=== PATIENT | female | born 1960 | race Hispanic/Latino ===

== ENCOUNTER 2016-10-28 00:14 | Observation (INO) | payer OTHER, MEDICARE ==
[~2016-10-28 00:14] MED LIST: AMARYL 2 MG2 MG PO; ATORVASTATIN CA10 MG PO; AUGMENTIN 875-1 EACH PO; BELSOMRA15 MG PO; CYMBALTA60 M1 PO; GLYBURIDE2.5 MG PO; HYDROXYZINE HCL25 MG PO; LYRICA150 M1 PO; METFORMIN ER500 MG PO; MUPIROCIN22 GM TOP; OXYCODONE-ACET1 EAC1 PO; PROTONIX40 M3 PO; SYNTHROID75 MCG PO; TRADJENTA5 M1 PO; XIGDUO PO
--- NOTE | 2016-10-28 00:21 | NUR ---
PER PT CP ON AND OFF X 9 MONTHS SUPPOSED TO SEE REVIEW RN 4 MONTHS AGO BUT HE CURRENTLY LOOKING FOR ANOTHER. LUISANA CP X 1 HR WHILE AT REST EMOTIONAL REPORTS FEELS LIKE IT IS PULSATING ALSO WITH BACK PAIN AND ABD PAIN FOR A LONG TIME NO KNOWN INJURY.
--- NOTE | 2016-10-28 00:28 | ED CARDIAC/CP/PALPITATIONS ---
See Addendum History of Present Illness General Chief Complaint: Chest Pain Stated Complaint: CHEST PAIN LEFT ARM PAIN Source: patient, old records Exam Limitations: no limitations Vital Signs & Intake/Output Vital Signs & Intake/Output Vital Signs Date Time Temp Pulse Resp B/P Pulse O2 O2 Flow FiO2 Ox Delivery Rate 10/28 1025 70 20 121/70 99 Room Air 10/28 0727 97.1 69 129/79 98 10/28 0635 96.8 76 18 111/76 98 Room Air 10/28 0200 97.6 68 18 147/85 99 Room Air 10/28 0100 61 120/64 10/28 0046 164/78 10/28 0040 97.3 64 22 178/104 98 Room Air Allergies Coded Allergies: ciprofloxacin (From CIPRO) (UNKNOWN 12/28/15) codeine (UNKNOWN 12/28/15) Reconcile Medications DULOXETINE HCL (Cymbalta) 60 MG ECC 2 CAP PO DAILY MENTAL HEALTH (Reported) Levothyroxine Sodium 0.075 MG TAB 0.075 MG PO DAILY AC THYROID (Reported) Linagliptin (Tradjenta) 5 MG TAB 1 TAB PO DAILY DIABETES (Reported) Metformin Hydrochloride (Metformin ER) [address] 1 TAB PO BID DB OXYCODONE HCL/ACETAMINOPHEN (Oxycodone-Acetaminophen 10-325) 1 TAB TAB 1 TAB PO BID PAIN (Reported) Pantoprazole Sodium (Protonix) 40 MG TAB 40 MG PO DAILY ACID REFLUX (Reported ) Pregabalin (Lyrica) 150 MG CAP 1 CAP PO BID PAIN (Reported) Trazodone HCl 50 MG TABLET 1 TAB PO QPM SLEEP (Reported) Triage Note: PER PT CP ON AND OFF X 9 MONTHS SUPPOSED TO SEE HEMODIALYSIS TECHNICIAN 4 MONTHS AGO BUT HE CURRENTLY LOOKING FOR ANOTHER. TONIGHT CP X 1 HR WHILE AT REST EMOTIONAL REPORTS FEELS LIKE IT IS PULSATING ALSO WITH BACK PAIN AND ABD PAIN FOR A LONG TIME NO KNOWN INJURY. Triage Nurses Notes Reviewed? yes HPI: Patient was sitting watching TV approximately 1 hour ago and she developed a substernal chest pressure radiating into the left shoulder and to her jaw. Positive shortness of breath. The symptoms have been continuous. She rates it as 7 out of 10. There are no aggravating or mitigating factors. Patient used just see a waiter/waitress third class however he she she has not followed up with anybody else. Patient does not think that she's had a cardiac catheterization or even a stress test in the past. (MARCELLA CARVAJAL MD) Past History Travel History Traveled to [place] past 21 day No Medical History Any Pertinent Medical History? 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 No (WEI INFANTE,MARCELLA Layton) Review of Systems Review of Systems Constitutional: Reports: no symptoms. EENTM: Reports: no symptoms. Respiratory: Reports: no symptoms. Cardiovascular: Reports: see HPI, chest pain. GI: Reports: no symptoms. Genitourinary: Reports: no symptoms. Musculoskeletal: Reports: no symptoms. Skin: Reports: no symptoms. Neurological/Psychological: Reports: no symptoms. Hematologic/Endocrine: Reports: no symptoms. Immunologic/Allergic: Reports: no symptoms. All Other Systems: Reviewed and Negative (WEI INFANTE,MARCELLA Layton) Physical Exam Physical Exam General Appearance: well developed/nourished, alert, awake, anxious, moderate distress Head: atraumatic, normal appearance Eyes: Bilateral: PERRL, EOMI. Ears, Nose, Throat: normal pharynx, normal ENT inspection, hearing grossly normal Neck: normal inspection, supple, full range of motion Respiratory: normal breath sounds, chest non-tender, no respiratory distress, lungs clear Cardiovascular: regular rate/rhythm, normal peripheral pulses Gastrointestinal: normal bowel sounds, soft, non-tender, no organomegaly Back: normal inspection, normal range of motion, vertebral tenderness Extremities: normal inspection, normal capillary refill, normal range of motion, no edema Neurologic/Psych: no motor/sensory deficits, awake, alert, oriented x 3, normal mood/affect Skin: intact, normal color, warm/dry Lymphatic: no anterior cervical brandi Core Measures ACS in differential dx? Yes ASA ordered for poss ACS? Yes-ordered Severe Sepsis Present: No Septic Shock Present: No (MARCELLA CARVAJAL MD) Progress Differential Diagnosis: AMI, aortic dissection, cholecystitis, CHF/pulm edema, musculoskeletal pain, myocarditis, pericarditis, pneumonia, pneumothorax, pulmonary embolism Plan of Care: Orders Procedure Date/time Status Consistent Carbohydrate 2 10/28 B Active Intake & Output 10/28 1024 Active TROPONIN LEVEL 10/28 0716 Complete EKG 10/28 0716 Active FingerStick- Glucose 10/[address] in observation 10/28 0029 Active Patient Data 10/28 0029 Active Vital Signs 10/28 0029 Active Code Status 10/28 0029 Active Telemetry/Organ Pipe Voicer 10/28 0028 Active TROPONIN LEVEL 10/28 0028 Complete D-DIMER 10/288 Complete COMPREHENSIVE METABOLIC PANEL 10/288 Complete CBC WITHOUT DIFFERENTIAL 10/28 27 Complete EKG 10/28 0015 Active Laboratory Tests 10/28/16 0730: Troponin I < 0.01 10/28/16 0033: Anion Gap 14, Estimated GFR > 60, BUN/Creatinine Ratio 28.3 H, Glucose 157 H, Calcium 9.6, Total Bilirubin 0.6, AST 27, ALT 59 H, Alkaline Phosphatase 123, Troponin I < 0.01, Total Protein 7.4, Albumin 4.1, Globulin 3.3, Albumin/ Globulin Ratio 1.2, D-Dimer 380 H, CBC w Diff NO MAN DIFF REQ, RBC 4.86, MCV 85.8, MCH 29.4, RDW 12.4, MPV 7.9, Gran % 49.8, Lymphocytes % 42.1, Monocytes % 3.8, Eosinophils % 0.9, Basophils % 3.4 H, Absolute Granulocytes 2.8, Absolute Lymphocytes 2.4, Absolute Monocytes 0.2, Absolute Eosinophils 0, Absolute Basophils 0.2, PUBS MCHC 34.2 8:[address] Bella will come to the ED to evaluate patient. Patient seen and evaluated by Dr. Cesilia mckinney for discharge home. Holter monitor pulled from Dr. abril Newberry records which showed evidence of sinus tachycardia. No other dysrhythmias. She will follow up outpatient for stress testing. Chest pain-free on discharge. (IVETH INFANTE,MATHIEU) Diagnostic Imaging: Viewed by Me: Radiology Read. Discussed w/RAD: Radiology Read. Radiology Impression: PATIENT: FUAD PAULINO PRESENT AGE: 56 PATIENT ACCOUNT NO: [id number] : 60 LOCATION: [facility] ORDERING PHYSICIAN: MARCELLA CARVAJAL MD SERVICE DATE: 10/28/16 EXAM TYPE: CAT - CTA CHEST-PULMONARY EMBOLISM EXAMINATION: CT ANGIOGRAM OF THE CHEST WITH AND WITHOUT CONTRAST (CT PULMONARY ANGIOGRAM FOR PE) CLINICAL INFORMATION: CHEST PAIN, SOB, +D-DIMER COMPARISON: No pertinent prior studies are available for comparison. TECHNIQUE: Prior to contrast administration, noncontrast localization images were obtained. Subsequently, multidetector volumetric imaging was performed from the thoracic inlet to below the diaphragms following the administration of 72 mL Optiray 370 intravenous contrast. No contrast reaction reported Sagittal, coronal, and MIP oblique sagittal reformatted images were obtained on the CT workstation, uploaded to PACS, and reviewed. Total exam dose-length product 375 mGy-cm FINDINGS: QUALITY OF STUDY/CONTRAST BOLUS: Satisfactory. PULMONARY ARTERIES: No central or segmental pulmonary emboli. THORACIC AORTA: No aneurysm or dissection. LUNG: Linear atelectasis is present at the right lung base. There is mild dependent atelectasis in the lower lobes bilaterally. No consolidation, bronchiectasis, or pulmonary nodules. No emphysema. PLEURA: No pleural effusion or pneumothorax. MEDIASTINUM: Normal heart size. No pericardial effusion. No hilar or mediastinal lymphadenopathy. No evidence of septal bowing or right heart strain. Calcific atherosclerosis is present in the coronary arteries and thoracic aorta. No aneurysmal dilatation of the thoracic aorta. CHEST WALL/AXILLA: No axillary or internal mammary lymphadenopathy. OSSEOUS STRUCTURES: There is mild degenerative spondylosis in the thoracic spine. No fracture or malalignment. Ribs are intact. UPPER ABDOMEN : Hepatic steatosis is evident with focal fatty sparing around the gallbladder fossa. Imaged portion of the upper abdomen is otherwise unremarkable. IMPRESSION : 1. No acute pulmonary findings. No evidence of pulmonary embolism. 2. Hepatic steatosis. VTE: negative DICTATED BY: ALVIN COLE MD DATE/TIME DICTATED:209 DOCUMENT EXAMINER:KARYNA DATE/TIME TRANSCRIBED:10/28/16209 CONFIDENTIAL, DO NOT COPY WITHOUT APPROPRIATE AUTHORIZATION. <Electronically signed in Other Vendor System> SIGNED BY: ALVIN COLE MD 10/28/16218 Initial ED EKG: NSR, no ST T wave changes Rhythm Strip: normal sinus rhythm Hand-Off Endorsed To: MATHIEU LAZARO MD Endorsed Time: 716 Pending: labs Comments: The first Nitro helped to lower her blood pressure but did nothing to help with the pain. No relief after the second nitroglycerin however the patient states that the pain is gone from her jaw. Patient states that she is, and that is what made the pain lever jaw and that the nitroglycerin did nothing. Patient also states that she has not taken her oxycodone in the past few days because of constipation. Patient continues to have the pain in her chest and arm. (MARCELLA CARVAJAL MD) Repeat EKG: unchanged (MATHIEU LAZARO MD) Departure Departure Condition: Stable Clinical Impression Primary Impression: Chest pain Qualifiers: Chest pain type: other chest pain Qualified Code: R07.89 - Other chest pain Departure Forms: Customer Survey General Discharge Information (MARCELLA CARVAJAL MD) Departure Time of Disposition: 999 Disposition: HOME OR SELF CARE Referrals: MISHA INFANTE,ELEN (PCP/Family) Sanjiv BELLA MD Additional Instructions: Did not take your metformin for the next 2 days and follow-up with her primary care physician to repeat the blood work for her kidneys to make sure it is safe to resume the metformin. Follow-up with Dr. Lemuel Bella in the office for outpatient stress testing. No strenuous activity until you were cleared to do so. Please return immediately to the ER for any changing or worsening symptoms. (MATHIEU LAZARO MD) Critical Care Note Critical Care Note Critical Care Time: non-applicable (MARCELLA CARVAJAL MD) ED Attending Observation Initial Observation Note: I have seen and personally examined FUAD PAULINO on 10/28/16 at 0031. I agree with the current emergency department documentation. The disposition (admission or discharge) is uncertain at this time, she needs a period of observation for the following reason(s): [Patient is going to require telemetry monitoring and serial enzymes. If chest pain continues or her enzymes are positive she will need admission and cardiology consultation.] The ED Nurse caring for this patient has been personally informed as to what the patient is being observed for. Observation Re-Evaluation: I have reevaluated FUAD PAULINO on 10/28/16 at 0424. The physical findings that support the continued need to observe this patient include [patient began to complain of a slight headache which is treated with Tylenol. Her chest pain has resolved after the morphine. Patient is resting comfortably. Her lungs are clear to auscultation bilaterally. Cardiac exam is regular rate and rhythm with no murmurs heard.]. (WEI INFANTE,MARCELLA Layton) Observation Re-Evaluation: I have reevaluated FUAD PAULINO on 10/28/16 at 0722. The physical findings that support the continued need to observe this patient include . 10/28/2016 7:22:14 AM Patient signed out to me by Dr. Carvajal. Pending repeat EKG and troponin. Patient resting comfortably. Observation Discharge: I have reevaluated FUAD PAULINO on 10/28/16 at 0959. The patient is: ([X]): Stable for discharge (): To be admitted to Nursing Floor (): To be placed in Observation on Nursing Floor (): For transfer to other facility The patient was being observed for [CHEST PAIN] As a result of that observation, I have determined [TWO NEGATIVE TROPONINS AND SEEN BY DR BELLA. CAN BE SEEN OUTPATIENT FOR STRESS TESTING.]. (IVETH INFANTE,MATHIEU)
--- NOTE | 2016-10-28 00:37 | NUR ---
PER PT WHO IS EMOTIONAL STATES SHE DOES NOT HAVE HTN, ALTHOUGH SHE DID SAY SHE DID DURING MD KVNG AND HTN IS LISTED IN HX. THERE ARE NO BP MEDS LISTED. PT REPORTS THAT SHE DOES NOT HAVE HTN, AND BECAME VERY EMOTIONAL OVER BP READING.
[2016-10-28 00:43] LABS: ABSOLUTE BASOPHIL COUNT 0.2 /CUMM (0.0-0.2); ABSOLUTE EOSINOPHIL COUNT 0 /CUMM (0.0-0.7); ABSOLUTE GRANULOCYTE CT 2.8 /CUMM (1.4-6.5); ABSOLUTE LYMPH COUNT 2.4 /CUMM (1.2-3.4); ABSOLUTE MONOCYTE COUNT 0.2 /CUMM (0.10-0.60); BASOPHIL % 3.4 % (0.0-2.0); EOSINOPHIL % 0.9 % (0-5); GRANULOCYTE % 49.8 % (42.2-75.2); HEMATOCRIT 41.7 % (37-47); MEAN CORPUSCULAR HGB 29.4 PG (27.0-31.0); MEAN CORPUSCULAR HGB CONC 34.2 G/DL (33.0-37.0); MEAN CORPUSCULAR VOLUME 85.8 FL (81.0-99.0); MEAN PLATELET VOLUME 7.9 FL (7.4-10.4); PLATELET COUNT 416 /CUMM (130-400); RBC DISTRIBUTION WIDTH 12.4 % (11.5-14.5); RED BLOOD CELL CT 4.86 /CUMM (4.20-5.40); WHITE BLOOD CELL COUNT 5.7 /CUMM (4.8-10.8)
[2016-10-28] MEDS ORDERED: TRAZODONE HCL50 M1 PO (00:52)
--- NOTE | 2016-10-28 00:53 | NUR ---
NO CHANGE IN PAIN AFTER 1ST SL NTG BP BETTER 164/78 HR 60'S PAIN 05/03
--- NOTE | 2016-10-28 00:57 | NUR ---
2ND SL NTG GIVEN. PT REPORTS THAT SHE HAS NOT HAD HER PAIN MED BECAUSE SHE HAS BEEN GETTING NAUSEOUS FROM IT AND CONSTIPATED. PT HAD JUST PREVIOUS COMPLETED CMR WITH THIS FOOTBALL SCOUT, BUT NOW SAYS SHE HAS NOT TAKEN THE PAIN MEDS. REPORTS APPT WITH HER DR NEXT WEDNESDAY TO GET THAT MED CHANGED.
--- NOTE | 2016-10-28 01:17 | NUR ---
MED WITH 4 MG IV MORPHINE. PAIN 05/03 BUT BP WNL FROM ARRIVAL PT REPORTS WILL LET US KNOW.
--- NOTE | 2016-10-28 02:19 | CT SCAN REPORT ---
EXAMINATION: CT ANGIOGRAM OF THE CHEST WITH AND WITHOUT CONTRAST (CT PULMONARY ANGIOGRAM FOR PE) CLINICAL INFORMATION: CHEST PAIN, SOB, +D-DIMER COMPARISON: No pertinent prior studies are available for comparison. TECHNIQUE: Prior to contrast administration, noncontrast localization images were obtained. Subsequently, multidetector volumetric imaging was performed from the thoracic inlet to below the diaphragms following the administration of 72 mL Optiray 370 intravenous contrast. No contrast reaction reported Sagittal, coronal, and MIP oblique sagittal reformatted images were obtained on the CT workstation, uploaded to PACS, and reviewed. Total exam dose-length product 375 mGy-cm FINDINGS: QUALITY OF STUDY/CONTRAST BOLUS: Satisfactory. PULMONARY ARTERIES: No central or segmental pulmonary emboli. THORACIC AORTA: No aneurysm or dissection. LUNG: Linear atelectasis is present at the right lung base. There is mild dependent atelectasis in the lower lobes bilaterally. No consolidation, bronchiectasis, or pulmonary nodules. No emphysema. PLEURA: No pleural effusion or pneumothorax. MEDIASTINUM: Normal heart size. No pericardial effusion. No hilar or mediastinal lymphadenopathy. No evidence of septal bowing or right heart strain. Calcific atherosclerosis is present in the coronary arteries and thoracic aorta. No aneurysmal dilatation of the thoracic aorta. CHEST WALL/AXILLA: No axillary or internal mammary lymphadenopathy. OSSEOUS STRUCTURES: There is mild degenerative spondylosis in the thoracic spine. No fracture or malalignment. Ribs are intact. UPPER ABDOMEN: Hepatic steatosis is evident with focal fatty sparing around the gallbladder fossa. Imaged portion of the upper abdomen is otherwise unremarkable. IMPRESSION: 1. No acute pulmonary findings. No evidence of pulmonary embolism. 2. Hepatic steatosis. VTE: negative
--- NOTE | 2016-10-28 04:43 | RADIOLOGY REPORT ---
EXAMINATION: XR PORTABLE CHEST CLINICAL INFORMATION: Chest pain. COMPARISON: None. TECHNIQUE: AP portable upright view of the chest FINDINGS: Lungs are clear with borderline low lung volumes. No consolidation, pneumothorax, or pleural effusion. Cardiac and mediastinal contours are normal. Pulmonary vasculature is unremarkable. Osseous structures are unremarkable. IMPRESSION: No acute cardiopulmonary findings
--- NOTE | 2016-10-28 05:02 | NUR ---
ASLEEP NO DISTRESS MONITOR SINUS. VSS
--- NOTE | 2016-10-28 07:30 | NUR ---
SECOND TROP SENT AT THIS TIME
--- NOTE | 2016-10-28 07:36 | NUR ---
ASSUMED CARE OF PT AT THIS TIME PT AWAKE, ALERT AND ORIENTED C/O HEADACHE. DR LAZARO AT THE BEDSIDE
--- NOTE | 2016-10-28 07:43 | NUR ---
MED WITH TORADOL PER DEC. PT STATES PAIN IS "MOSTLY MY HEAD". TOAST AND FRUIT ORDERED THROUGH DIETARY PT DENIES NEEDING ANYTHING ELSE AT THIS TIME AND STATES SHE IS TIRED - "I DIDNT SLEEP AT ALL LAST NIGHT". DOOR CLOSED AND CALL LIGHT IN PLACE
--- NOTE | 2016-10-28 08:55 | NUR ---
DR BELLA PRESENT TO EVAL PT
--- NOTE | 2016-10-28 09:34 | NUR ---
DR BELLA REMAINS IN ROOM EVALUATING PATIENT PT HAD TO BE WOKEN FROM SLEEP FOR CARDIOLOGY EVAL
--- NOTE | 2016-10-28 10:23 | NUR ---
PT D/C HOME AFTER EVAL FROM DR. BELLA. IV D/C, PT MADE AWARE TO NOT TAKE METFORMIN FOR TWO DAYS AND UNTIL SHE FOLLOWS UP WITH PMD FOR REPEAT BLOODWORK OF KIDNEYS. PT ALSO INSTRUCTED TO CALL DR BELLA FOR OUTPATIENT STRESS TEST. PT AWARE AND UNDERSTANDS D/C INSTRUCTIONS.
[2016-10-28 10:25] VITALS: BP 121/70
--- NOTE | 2016-10-28 13:09 | Cons- Cardiology ---
General Information and HPI Consulting Request Date of Consult: 10/28/16 Requested By: WEI INFANTE,MARCELLA Layton Reason for Consult: Chest pain and palpitations Source of Information: patient, old records History of Present Illness: The patient is a 56-year-old female who presents to the emergency room with complaints of palpitations, tachycardia, and left-sided chest discomfort radiating to the left shoulder and arm. The patient has been having symptoms for several months. She was originally seen by Dr. ragsdale in [place] a few months ago. At that time, she did wear an event monitor but never had follow-up with him and has had no other testing performed. The patient was previously very active. She saw also dances but has had to discontinue all these activities due to exercise-induced chest discomfort and palpitations. The patient notes that she has a history of arrhythmia in the family and has at least one person in the family who is had an ablation. Due to worsening symptoms, the patient came to the emergency room. In the emergency him, her ECG has been unrevealing and her serial troponins have been negative. There have been no arrhythmias noted on the monitor here. Allergies/Medications Allergies: Coded Allergies: ciprofloxacin (From CIPRO) (UNKNOWN 12/28/15) codeine (UNKNOWN 12/28/15) Home Med List: DULOXETINE HCL (Cymbalta) 60 MG ECC 2 CAP PO DAILY MENTAL HEALTH (Reported) Levothyroxine Sodium 0.075 MG TAB 0.075 MG PO DAILY AC THYROID (Reported) Linagliptin (Tradjenta) 5 MG TAB 1 TAB PO DAILY DIABETES (Reported) Metformin Hydrochloride (Metformin ER) [address] 1 TAB PO BID DB OXYCODONE HCL/ACETAMINOPHEN (Oxycodone-Acetaminophen 10-325) 1 TAB TAB 1 TAB PO BID PAIN (Reported) Pantoprazole Sodium (Protonix) 40 MG TAB 40 MG PO DAILY ACID REFLUX (Reported ) Pregabalin (Lyrica) 150 MG CAP 1 CAP PO BID PAIN (Reported) Trazodone HCl 50 MG TABLET 1 TAB PO QPM SLEEP (Reported) Past History Travel History Traveled to [place] past 21 day No Medical History Neurological: ACOUSTIC NEUROMA EENT: NONE Cardiovascular: hypertension, hyperlipidemia Respiratory: NONE Gastrointestinal: NONE Hepatic: NONE Renal: NONE Musculoskeletal: NONE Psychiatric: NONE Endocrine: diabetes Blood Disorders: NONE 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: "TUMORS STATUS POST HYSTERECTOMY" Surgical History 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, 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 SURGERY TO REMOVE TUMORS STATUS POST HYSTERECTOMY aCOUSTIC NEUROMA EXCISION Psychosocial History ETOH Use: denies use Illicit Drug Use: denies illicit drug use Exam & Diagnostic Data Vital Signs and I&O Vital Signs Date Time Temp Pulse Resp B/P Pulse O2 O2 Flow FiO2 Ox Delivery Rate 10/28 1025 70 20 121/70 99 Room Air 10/28 0727 97.1 69 129/79 98 10/28 0635 96.8 76 18 111/76 98 Room Air 10/28 0200 97.6 68 18 147/85 99 Room Air 10/28 0100 61 120/64 10/28 0046 164/78 10/28 0040 97.3 64 22 178/104 98 Room Air Intake & Output 10/28 1600 10/28 0810/28 0000 10/27 1600 10/27 0810/27 0000 Intake Total Output Total Balance Patient 130 lb Weight Physical Exam: General Appearance: well developed/nourished, alert, awake, anxious, moderate distress Head: Normal Ears, Nose, Throat: normal pharynx, normal ENT inspection, hearing grossly normal Neck: normal inspection, supple, full range of motion, JVP normal, carotid obstructive was bilaterally with no bruits Respiratory: normal breath sounds, chest non-tender, no respiratory distress, lungs clear Cardiovascular: regular rate/rhythm, 1/6 systolic murmur left sternal border Gastrointestinal: normal bowel sounds, soft, non-tender, no organomegaly Extremities: normal inspection, normal capillary refill, normal range of motion, no edema Neurologic/Psych: no motor/sensory deficits, awake, alert, oriented x 3, normal mood/affect Skin: intact, normal color, warm/dry Labs/Lewis Results: Laboratory Tests 10/28 10/28 0730 0033 Chemistry Sodium (137 - 145 mmol/L) 139 Potassium (3.5 - 5.1 mmol/L) 4.0 Chloride (98 - 107 mmol/L) 99 Carbon Dioxide (22 - 30 mmol/L) 26 Anion Gap (5 - 16) 14 BUN (7 - 17 mg/dL) 17 Creatinine (0.5 - 1.0 mg/dL) 0.6 Estimated GFR (>60 ml/min) > 60 BUN/Creatinine Ratio (7 - 25 %) 28.3 H Glucose (65 - 99 mg/dL) 157 H Calcium (8.4 - 10.2 mg/dL) 9.6 Total Bilirubin (0.2 - 1.3 mg/dL) 0.6 AST (14 - 36 U/L) 27 ALT (9 - 52 U/L) 59 H Alkaline Phosphatase (<127 U/L) 123 Troponin I (< 0.11 ng/ml) < 0.01 < 0.01 Total Protein (6.3 - 8.2 g/dL) 7.4 Albumin (3.5 - 5.0 g/dL) 4.1 Globulin (1.9 - 4.2 gm/dL) 3.3 Albumin/Globulin Ratio (1.1 - 2.2 %) 1.2 Coagulation D-Dimer (70 - 232 ng/ml) 380 H Hematology CBC w Diff NO MAN DIFF REQ WBC (4.8 - 10.8 /CUMM) 5.7 RBC (4.20 - 5.40 /CUMM) 4.86 Hgb (12.0 - 16.0 G/DL) 14.3 Hct (37 - 47 %) 41.7 MCV (81.0 - 99.0 FL) 85.8 MCH (27.0 - 31.0 PG) 29.4 RDW (11.5 - 14.5 %) 12.4 Plt Count (130 - 400 /CUMM) 416 H MPV (7.4 - 10.4 FL) 7.9 Gran % (42.2 - 75.2 %) 49.8 Lymphocytes % (20.5 - 51.1 %) 42.1 Monocytes % (1.7 - 9.3 %) 3.8 Eosinophils % (0 - 5 %) 0.9 Basophils % (0.0 - 2.0 %) 3.4 H Absolute Granulocytes (1.4 - 6.5 /CUMM) 2.8 Absolute Lymphocytes (1.2 - 3.4 /CUMM) 2.4 Absolute Monocytes (0.10 - 0.60 /CUMM) 0.2 Absolute Eosinophils (0.0 - 0.7 /CUMM) 0 Absolute Basophils (0.0 - 0.2 /CUMM) 0.2 PUBS MCHC (33.0 - 37.0 G/DL) 34.2 Diagnostic Data EKG Results Normal sinus rhythm with no significant abnormalities Assessment/Plan Assessment/Plan Assessment: 1. Chest pain syndrome-by history, the patient's symptoms are more suggestive of noncardiac etiology. Nevertheless, she does have intermittent exertional symptoms associated with palpitations. Further outpatient evaluation is indicated. 2. Palpitations -We did obtain a copy of the patient's event monitor from Dr. Rockwell office. The available results showed only episodes of sinus tachycardia with no evidence of any significant arrhythmias. 3. Hypertension 4. Hyperlipidemia Recommendations: -If the patient's serial troponins are negative, the patient can be discharged for further evaluation as an outpatient. -My office will arrange for an outpatient echocardiogram and stress test -The patient will follow-up with me after the tests are performed. Consult Acknowledgment - Thank you for your consult request.
== END 2016-10-28 10:48 ==
LOC: ERH 00:14 → ERHI 00:29
PROVIDERS: ADMIT Emergency Medicine
DX: R07.9 Chest pain, unspecified (principal); R00.2 Palpitations; I10 Essential (primary) hypertension; E78.5 Hyperlipidemia, unspecified
CPT/HCPCS: 6090; 93005; 93010; 96374; 96375; G0378; J1885; J3490

== ENCOUNTER 2016-11-13 15:41 | Emergency (ER) | payer OTHER, MEDICARE ==
[~2016-11-13] VITALS: Ht 157.5 cm; Wt 59.0 kg
[~2016-11-13 15:41] MED LIST changes: +TRAZODONE HCL50 M1 PO
[2016-11-13] MEDS ORDERED: ATORVASTATIN CA10 M1 PO (17:26)
[2016-11-13] MEDS ORDERED: METFORMIN HCL1000 M1 PO (17:27)
[2016-11-13] MEDS ORDERED: BIOTIN2500 MCG PO (17:28)
[2016-11-13] MEDS ORDERED: ASPIRIN EC81 M1 PO (17:29)
--- NOTE | 2016-11-13 18:08 | ED NECK/BACK PAIN COMPLAINT ---
History of Present Illness General Chief Complaint: Low Back Pain/Injury Stated Complaint: S/P LAST WEEK LOWER BACK PAIN Source: patient Exam Limitations: no limitations Vital Signs & Intake/Output Vital Signs & Intake/Output Vital Signs Date Time Temp Pulse Resp B/P Pulse O2 O2 Flow FiO2 Ox Delivery Rate 11/13 1811 Room Air Room Air 11/13 1547 98.3 89 16 114/74 100 Room Air Allergies Coded Allergies: ciprofloxacin (From CIPRO) (ANAPHYLAXIS 11/13/16) codeine (ANAPHYLAXIS 11/13/16) Triage Note: PT TO ED FOR LOW BACK PAIN, REPORTS SHE FELL ON ICE LAST WEEK AND HAS BEEN HAVING LOW BACK PAIN EVER SINCE, REPORTS BURNING PAIN DOWN BOTH LEGS, NO LOSS OF B/B. Triage Nurses Notes Reviewed? yes HPI: This is a 56-year-old female who presented to the emergency department with chief complaint of low back pain s/p fall since 1 week. She fell on ice last week and hurted her back. Since then she started having back pain, low back pain, 10 out of 10, stabbing, radiating to right thigh, worsened with bending, sitting and lying down. Mild relief with Aleve. She tried heating pads. However She didn't see any doctor since then. Also complains of low back swelling. Off notes she reports constipation for 1 week and she is using stool softeners. Last bowel movement was 2 days ago. She denies any lower extremity weakness, sensory changes, gait changes, numbness or tingling sensation. Denies any bladder or bowel incontinence. Straight leg raise test was positive. (ANGELICA INFANTE,[facility]) Reconcile Medications Aspirin (Ecotrin*) 81 MG TABLET.DR 1 TAB PO DAILY HEART/BLOOD (Reported) Atorvastatin Calcium 10 MG TABLET 1 TAB PO DAILY CHOLESTEROL (Reported) Biotin (Unknown Strength) CAPSULE (Unknown Dose) PO DAILY SUPPLEMENT ( Reported) Cyclobenzaprine HCl 10 MG TABLET 1 TAB PO TID PRN SPASM DULOXETINE HCL (Cymbalta) 60 MG ECC 2 CAP PO DAILY MENTAL HEALTH (Reported) Levothyroxine Sodium 0.075 MG TAB 0.075 MG PO DAILY AC THYROID (Reported) Linagliptin (Tradjenta) 5 MG TAB 1 TAB PO DAILY DIABETES (Reported) Metformin HCl 1,000 MG TABLET 1 TAB PO BID DM (Reported) Naproxen 500 MG TABLET 1 TAB PO BID PRN PAIN TAKE WITH FOOD OXYCODONE HCL/ACETAMINOPHEN (Oxycodone-Acetaminophen 10-325) 1 TAB TAB 1 TAB PO BID PAIN (Reported) Pantoprazole Sodium (Protonix) 40 MG TAB 40 MG PO DAILY ACID REFLUX (Reported ) Pregabalin (Lyrica) 150 MG CAP 1 CAP PO BID PAIN (Reported) Trazodone HCl 50 MG TABLET 2 TAB PO QPM SLEEP (Reported) (MATHIEU LAZARO MD) Past History Travel History Traveled to [place] past 21 day No Medical History Any Pertinent Medical History? 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 Yes (JEFF DOMINGUEZ MD) Review of Systems Review of Systems Constitutional: Denies: chills, diaphoresis, fever, malaise, weakness, unexplained weight loss. Eyes: Denies: blurred vision. Respiratory: Denies: cough, orthopnea, short of breath, sputum production. Cardiovascular: Reports: palpitations. Denies: chest pain. Gastrointestinal/Abdominal: Reports: constipation, nausea. Denies: abdominal pain, diarrhea, vomiting. Musculoskeletal: Reports: back pain. Denies: joint pain, joint swelling, muscle pain, neck pain. Skin: Denies: rash. (JEFF DOMINGUEZ MD) Physical Exam Physical Exam General Appearance: well developed/nourished, no apparent distress, alert, awake Head: atraumatic, normal appearance Neck: normal inspection, supple, full range of motion Respiratory: normal breath sounds Cardiovascular: regular rate/rhythm Gastrointestinal: normal bowel sounds, soft, non-tender Back: vertebral tenderness, evidence of trauma, low back pain and swelling Extremities: non-tender, normal range of motion Straight Leg Raising: Right: Pain at ____ degrees. Left: Pain at ____ degrees. Core Measures (NIH Stroke Scl) CVA/TIA Diagnosis: No (JEFF DOMINGUEZ MD) Progress Differential Diagnosis: herniated disc, sciatica, spinal cord inj, T/L spine injury Plan of Care: Orders Procedure Date/time Status XRY-THORACOLUMBAR SPINE 11/13 1757 Active Current Medications Sig/Celia Start time Last Medication Dose Stop Time Status Admin Ketorolac 30 MG ONCE ONE 11/13 1800 UNVr Tromethamine 11/13 1801 (Toradol) Diagnostic Imaging: Viewed by Me: Radiology Read. Discussed w/RAD: Radiology Read. Radiology Impression: PATIENT: FUAD PAULINO PRESENT AGE: 56 PATIENT ACCOUNT NO: [id number] : 60 LOCATION: [facility] ORDERING PHYSICIAN: JEFF DOMINGUEZ MD SERVICE DATE: 11/13/16-1757 EXAM TYPE: RAD - XRY-THORACOLUMBAR SPINE EXAMINATION: 4 views of the thoracolumbar spine CLINICAL INFORMATION: Low back pain and swelling after fall COMPARISON: Abdominal CT 07/28/2009. FINDINGS: Spinal alignment is normal. Vertebral body heights are maintained. Mild disc space loss at L5-S1. Disc spaces are otherwise preserved. There are no acute fractures and there are no acute subluxations. A calcification within the right lower quadrant is stable in comparison to the previous abdominal CT study, likely a calcified node. There is a possible calcification within the left lower quadrant as well that is nonspecific. IMPRESSION: No acute osseous findings within the thoracic or lumbar spine. There is mild disc space loss at L5-S1. DICTATED BY: AWILDA MARTINEZ MD DATE/TIME DICTATED:11/13/161853 TOOL WORKER:KARYNA DATE/TIME TRANSCRIBED:1853 CONFIDENTIAL, DO NOT COPY WITHOUT APPROPRIATE AUTHORIZATION. < Electronically signed in Other Vendor System> SIGNED BY: AWILDA MARTINEZ MD 11/13/161899 (MATHIEU LAZARO MD) Departure Departure Condition: Stable Referrals: ELEN CABRAL MD (PCP/Family) Departure Forms: Customer Survey General Discharge Information (JEFF DOMINGUEZ MD) Departure Time of Disposition: 1905 Disposition: HOME OR SELF CARE Clinical Impression Primary Impression: Lumbar contusion Additional Instructions: FOLLOW UP WITH YOUR DOCTOR IN THE OFFICE. TAKE THE FLEXERIL AND NAPROXEN DIRECTED. RETURN TO THE ER FOR ANY CHANGING OR WORSENING SYMPTOMS. Prescriptions: Current Visit Scripts Naproxen 1 TAB PO BID PRN PAIN #30 TAB TAKE WITH FOOD Cyclobenzaprine HCl 1 TAB PO TID PRN SPASM #20 TAB Resident Co-Sign Statement Statement: ED Attending supervision documentation- [X] I saw and evaluated the patient. I have also reviewed all the pertinent lab results and diagnostic results. I agree with the findings and the plan of care as documented in the Resident's documentation. [X] I have reviewed the ED Record and agree with the Resident's documentation. [] Additions or exceptions (if any) to the Resident's note and plan are summarized below: [] (IVETH INFANTE,MATHIEU) Critical Care Note Critical Care Note Critical Care Time: 30-74 min (ANGELICA INFANTE,[facility])
[2016-11-13 18:55] VITALS: BP 110/67
--- NOTE | 2016-11-13 19:00 | RADIOLOGY REPORT ---
EXAMINATION: 4 views of the thoracolumbar spine CLINICAL INFORMATION: Low back pain and swelling after fall COMPARISON: Abdominal CT 07/28/2009. FINDINGS: Spinal alignment is normal. Vertebral body heights are maintained. Mild disc space loss at L5-S1. Disc spaces are otherwise preserved. There are no acute fractures and there are no acute subluxations. A calcification within the right lower quadrant is stable in comparison to the previous abdominal CT study, likely a calcified node. There is a possible calcification within the left lower quadrant as well that is nonspecific. IMPRESSION: No acute osseous findings within the thoracic or lumbar spine. There is mild disc space loss at L5-S1.
[2016-11-13] MEDS ORDERED: NAPROXEN500 M2 PO (19:17)
[2016-11-13] MEDS ORDERED: CYCLOBENZAPRINE10 M1 PO (19:17)
== END 2016-11-13 19:25 ==
LOC: ERH 15:41
DX: S30.0XXA Contusion of lower back and pelvis, initial encounter (principal); W00.0XXA Fall on same level due to ice and snow, initial encounter
CPT/HCPCS: 72080; 96372; J1885

== ENCOUNTER 2016-12-22 19:18 | Emergency (ER) | payer OTHER, MEDICARE ==
[~2016-12-22 19:18] MED LIST changes: +ASPIRIN EC81 M1 PO; +ATORVASTATIN CA10 M1 PO; +BIOTIN2500 MCG PO; +CYCLOBENZAPRINE10 M1 PO; +METFORMIN HCL1000 M1 PO; +NAPROXEN500 M2 PO
--- NOTE | 2016-12-22 21:17 | ED HEADACHE COMPLAINT ---
History of Present Illness General Chief Complaint: General Adult Stated Complaint: PEREZ, +N/V X 1 WEEK Source: patient Exam Limitations: no limitations Vital Signs & Intake/Output Vital Signs & Intake/Output Vital Signs Date Time Temp Pulse Resp B/P Pulse O2 O2 Flow FiO2 Ox Delivery Rate 12/22 2341 97.1 69 18 102/62 99 Room Air 12/22 1926 97.1 108 20 105/78 99 Room Air ED Intake and Output 12/23 0000 12/22 1200 Intake Total 1000 Output Total Balance 1000 Intake, IV 1000 Intake, Oral 0 Patient 127 lb Weight Allergies Coded Allergies: ciprofloxacin (From CIPRO) (ANAPHYLAXIS 11/13/16) codeine (ANAPHYLAXIS 11/13/16) Reconcile Medications Aspirin (Ecotrin*) 81 MG TABLET.DR 1 TAB PO DAILY HEART/BLOOD (Reported) Atorvastatin Calcium 10 MG TABLET 1 TAB PO DAILY CHOLESTEROL (Reported) Biotin (Unknown Strength) CAPSULE (Unknown Dose) PO DAILY SUPPLEMENT ( Reported) Duloxetine HCl (Cymbalta) 60 MG CAPSULE.DR 120 MG PO DAILY MENTAL HEALTH ( Reported) Levothyroxine Sodium (Synthroid) 75 MCG TABLET 1 TAB PO DAILY THYROID ( Reported) Linagliptin (Tradjenta) 5 MG TABLET 1 TAB PO DAILY DM (Reported) Metformin HCl 1,000 MG TABLET 1 TAB PO BID DM (Reported) Naproxen 500 MG TABLET 1 TAB PO BID PRN PAIN TAKE WITH FOOD Ondansetron (Zofran Odt) 4 MG TAB.RAPDIS 1 TAB SL TID PRN NAUSEA Oxycodone HCl/Acetaminophen (Oxycodone-Acetaminophen 10-325) 10 MG-325 MG TABLET 1 TAB PO BID PAIN (Reported) Pantoprazole Sodium (Protonix) 40 MG TABLET.DR 1 TAB PO DAILY GI (Reported) Pregabalin (Lyrica) 150 MG CAPSULE 1 CAP PO BID PAIN (Reported) Trazodone HCl 50 MG TABLET 2 TAB PO QPM SLEEP (Reported) Triage Note: PER PT HAD A NERVE BLOCK TO L NECK LAST WEDNESDAY, FELT DIZZY AND COULD NOT BREATHE, HAS HAD THEM BEFORE BUT, THIS TIME BY SOMEONE ELSE SINCE THEN HAS BEEN NAUSEOUS AND PEREZ DRY MOUTH AND THINK ITS RELATED TO THE BLOCK Triage Nurses Notes Reviewed? yes HPI: This patient is a 56 year old female with a past medical history including acoustic neuroma who presented to the emergency department today for evaluation of headache and nausea s/p nerve block last . She reported that she typically sees her usual physician assistant chief train dispatcher at the neurologist office, but had someone new last . She reported that during the 5th injection the room around her started to spin and "my throat locked up so I couldn't breathe." She reported that she was given IV Benadryl. Since that time she has had nausea and vomiting x3 every time she tries to eat. She lost about 8 lbs since last week due to not being able to eat. She reported that her mouth has been dry. She reported that she has been having an 8 out of 10 pain in her head, acorss her forehead and near the occiput. She reported that she took tylenol around 4:30 this afternoon which took some of the pain away. She was given zofran is triage which helped her nausea. She denied any abdominal pain, back pain, fevers, chills, chest pain, shortness of breath. She did reported, "I think I might be coming down with a cold, too." (GIO HERNANDEZ PA-C) Past History Travel History Traveled to [place] past 21 day No Medical History Any Pertinent Medical History? 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 No (GIO HERNANDEZ PA-C) Review of Systems Review of Systems Constitutional: Reports: no symptoms. Eyes: Reports: no symptoms. Ears, Nose, Throat, Mouth: Reports: no symptoms. Respiratory: Reports: no symptoms. Cardiovascular: Reports: no symptoms. Gastrointestinal/Abdominal: Reports: see HPI. Genitourinary: Reports: no symptoms. Musculoskeletal: Reports: no symptoms. Skin: Reports: no symptoms. Neurological/Psychological: Reports: see HPI. Endocrine: Reports: no symptoms. All Other Systems: Reviewed and Negative (GIO HERNANDEZ PA-C) Physical Exam Physical Exam Cranial Nerves: normal hearing, normal speech, PERRL Comments: Well-developed well-nourished person in no acute distress HEENT: Normal EENT exam, head normocytic/atraumatic with no bony deformity/step- off to the skull, no tenderness to palpation over the scalp PERRLA bilaterally Neck: Supple, no lymphadenopathy. No midline tenderness Back: Normal gait Cardiovascular: Regular rate and rhythm with no murmurs Respiratory: Chest nontender. No respiratory distress. Breath sounds clear to auscultation bilaterally Abdomen: Soft, nontender and nondistended. No organomegaly. Ne rebound or guarding. No peritoneal signs Extremity: Normal and equal pulses. Neuro: Alert oriented x3, cranial nerves II through XII grossly intact. No aphasia, no facial droop. NO unilateral weakness. No focal neurologic deficitis Skin: No appreciable rash on exposed skin, skin is warm and dry. Psych: Mood and affect is normal Core Measures Severe Sepsis Present: No Septic Shock Present: No (GIO HERNANDEZ PA-C) Progress Differential Diagnosis: carotid dissection, cav sinus thromb, cluster PEREZ, encephalitis, IC mass/tumor, intracranial Hem., meningitis, migraine PEREZ, sinusitis, subarach. Hem., tension PEREZ, temporal arteritis, TMJ syndrome, viral cephalgia Plan of Care: Orders Procedure Date/time Status RAPID VIRAL INFLUENZA A 12/22 2101 Complete COMPREHENSIVE METABOLIC PANEL 12/22 2101 Complete CBC WITHOUT DIFFERENTIAL 12/22 2101 Complete EKG 12/22 1926 Active Laboratory Tests 12/22/162137: Anion Gap 10, Estimated GFR > 60, BUN/Creatinine Ratio 31.7 H, Glucose 226 H, Calcium 9.5, Total Bilirubin 0.4, AST 17, ALT 33, Alkaline Phosphatase 136 H, Total Protein 6.4, Albumin 3.3 L, Globulin 3.1, Albumin/Globulin Ratio 1.1, CBC w Diff NO MAN DIFF REQ, RBC 4.71, MCV 86.2, MCH 29.0, RDW 12.2, MPV 7.6, Gran % 70.9, Lymphocytes % 24.7, Monocytes % 3.0, Eosinophils % 0.8, Basophils % 0.6, Absolute Granulocytes 6.1, Absolute Lymphocytes 2.1, Absolute Monocytes 0.3, Absolute Eosinophils 0.1, Absolute Basophils 0, PUBS MCHC 33.6 Microbiology 12/22 2140 NASOPHARYN: Influenza Virus A & B Rapid Smear - COMP Diagnostic Imaging: Viewed by Me: CT Scan. Discussed w/RAD: CT Scan. Radiology Impression: PATIENT: FUAD PAULINO PRESENT AGE: 56 PATIENT ACCOUNT NO: [id number] : 60 LOCATION: [facility] ORDERING PHYSICIAN: GIO HERNANDEZ PA-C SERVICE DATE: 12/22/16 EXAM TYPE: CAT - CT HEAD WO IV CONTRAST EXAMINATION: CT HEAD WITHOUT CONTRAST CLINICAL INFORMATION: Headache. Status post nerve block. COMPARISON: CT head 03/23/2008. TECHNIQUE: Contiguous axial imaging was performed from the skull base to vertex without intravenous administration of contrast. DLP: 529.16 mGy-cm FINDINGS: Status post left occipital craniotomy. There is no evidence of acute intracranial hemorrhage or territorial infarction. No abnormal mass effect or midline shift is seen. Verdin to white matter differentiation is well preserved. No extra-axial fluid collections are identified. Vascular wall calcifications of the internal carotid artery bilaterally at the carotid artery siphon. The ventricles are normal in size. There is no abnormal attenuation within the brain parenchyma. The mastoid air cells and visualized portions of the paranasal sinuses are well aerated. IMPRESSION: No acute intracranial pathology. DICTATED BY: RAMOS UY MD DATE/TIME DICTATED:12/22/162333 BUDDER:KARYNA DATE/TIME TRANSCRIBED:12/22/162333 CONFIDENTIAL, DO NOT COPY WITHOUT APPROPRIATE AUTHORIZATION. <Electronically signed in Other Vendor System> SIGNED BY: RAMOS YU MD 12/22/16 2340, PATIENT: FUAD PAULINO PRESENT AGE: 56 PATIENT ACCOUNT NO: [id number] : 60 LOCATION: [facility] ORDERING PHYSICIAN: GIO HERNANDEZ PA-C SERVICE DATE: 12/22/16 EXAM TYPE: CAT - CT ABD & PELVIS W IV CONTRAST EXAMINATION: CT ABDOMEN AND PELVIS WITH CONTRAST CLINICAL INFORMATION: Nausea. Rule out cholecystitis. COMPARISON: Abdominal CT July 28, 2009. TECHNIQUE: Multidetector volumetric imaging was performed of the abdomen and pelvis before and after the IV administration of 95 mL of Optiray 320 intravenous contrast. Sagittal and coronal reformatted images were obtained on the technologist's workstation. FINDINGS: The lung bases are clear. There is diffuse hepatic steatosis. The spleen, adrenal glands, gallbladder, and pancreas are normal. There are extrarenal pelvises bilaterally that appear stable. There is a 6 mm calculus within the midpole of the left kidney. No focal renal lesions. Large amount of intracolonic stool. The large and small bowel are normal in caliber without evidence of mechanical obstruction. No focal inflammatory changes adjacent to the large or the small bowel. The appendix is normal. There is no free air and there is no intra- abdominal free fluid. No mesenteric or retroperitoneal adenopathy. The pelvic viscera are normal. No pelvic adenopathy. No free fluid within the pelvis. There are no acute osseous abnormalities. There is nodular soft tissue density within the upper outer quadrant of the left breast that can be further assessed with mammography. IMPRESSION: - No acute intra-abdominal/intrapelvic findings. The gallbladder is normal. - There is nodular soft tissue density within the upper outer quadrant of the left breast that can be further assessed with mammography. - Large amount of intracolonic stool. No bowel obstruction. - There is a 6 mm nonobstructing calculus within the midpole of the left kidney. Extrarenal pelvises bilaterally, stable in comparison to the 2009 CT. - Hepatic steatosis. DICTATED BY: AWIDLA MARTINEZ MD DATE/TIME DICTATED:12/22/162335 BUDDER:KARYNA DATE/TIME TRANSCRIBED:12/22/162335 CONFIDENTIAL, DO NOT COPY WITHOUT APPROPRIATE AUTHORIZATION. <Electronically signed in Other Vendor System> SIGNED BY: AWILDA MARTINEZ MD 12/22/16 7312 Initial ED EKG: normal intervals, no ST T wave changes, SINUS TACHYCARDIA, 97 BPM Comments: 12/22/2016 9:26:11 PM: Patient requesting CT of abdomen and pelvis to r/o cholecystitis. No complaints of abdominal pain at this time. (MARY GOMEZ,GIO) Departure Departure Disposition: HOME OR SELF CARE Condition: Stable Clinical Impression Primary Impression: Headache Qualifiers: Headache type: unspecified Headache chronicity pattern: unspecified pattern Intractability: not intractable Qualified Code: R51 - Headache Referrals: MISHA INFANTE,ELEN (PCP/Family) Additional Instructions: Please rest and be sure to stay hydrated. Take Zofran as prescribed for nausea. Please call to make a follow-up appointment with your neurologist as discussed. Return for any worsening symptoms or concerns. Departure Forms: Customer Survey General Discharge Information Prescriptions: Current Visit Scripts Ondansetron (Zofran Odt) 1 TAB SL TID PRN NAUSEA #10 TAB (MARY GOMEZ,GIO) PA/PETROL TANKER DRIVER Co-Sign Statement Statement: ED Attending supervision documentation- [] I saw and evaluated the patient. I have also reviewed all the pertinent lab results and diagnostic results. I agree with the findings and the plan of care as documented in the PA's/PETROL TANKER DRIVER's documentation. [X] I have reviewed the ED Record and agree with the PA's/PETROL TANKER DRIVER's documentation. [] Additions or exceptions (if any) to the PAs/PETROL TANKER DRIVER's note and plan are summarized below: [] (WEI INFANTE,MARCELLA Layton)
[2016-12-22 21:55] LABS: ABSOLUTE BASOPHIL COUNT 0 /CUMM (0.0-0.2); ABSOLUTE EOSINOPHIL COUNT 0.1 /CUMM (0.0-0.7); ABSOLUTE GRANULOCYTE CT 6.1 /CUMM (1.4-6.5); ABSOLUTE LYMPH COUNT 2.1 /CUMM (1.2-3.4); ABSOLUTE MONOCYTE COUNT 0.3 /CUMM (0.10-0.60); BASOPHIL % 0.6 % (0.0-2.0); EOSINOPHIL % 0.8 % (0-5); GRANULOCYTE % 70.9 % (42.2-75.2); HEMATOCRIT 40.6 % (37-47); MEAN CORPUSCULAR HGB CONC 33.6 G/DL (33.0-37.0); MEAN CORPUSCULAR VOLUME 86.2 FL (81.0-99.0); MEAN PLATELET VOLUME 7.6 FL (7.4-10.4); PLATELET COUNT 527 /CUMM (130-400); RBC DISTRIBUTION WIDTH 12.2 % (11.5-14.5); RED BLOOD CELL CT 4.71 /CUMM (4.20-5.40); WHITE BLOOD CELL COUNT 8.6 /CUMM (4.8-10.8)
--- NOTE | 2016-12-22 23:40 | CT SCAN REPORT ---
EXAMINATION: CT HEAD WITHOUT CONTRAST CLINICAL INFORMATION: Headache. Status post nerve block. COMPARISON: CT head 03/23/2008. TECHNIQUE: Contiguous axial imaging was performed from the skull base to vertex without intravenous administration of contrast. DLP: 529.16 mGy-cm FINDINGS: Status post left occipital craniotomy. There is no evidence of acute intracranial hemorrhage or territorial infarction. No abnormal mass effect or midline shift is seen. Verdin to white matter differentiation is well preserved. No extra-axial fluid collections are identified. Vascular wall calcifications of the internal carotid artery bilaterally at the carotid artery siphon. The ventricles are normal in size. There is no abnormal attenuation within the brain parenchyma. The mastoid air cells and visualized portions of the paranasal sinuses are well aerated. IMPRESSION: No acute intracranial pathology.
[2016-12-22 23:41] VITALS: BP 102/62
--- NOTE | 2016-12-22 23:48 | CT SCAN REPORT ---
EXAMINATION: CT ABDOMEN AND PELVIS WITH CONTRAST CLINICAL INFORMATION: Nausea. Rule out cholecystitis. COMPARISON: Abdominal CT July 28, 2009. TECHNIQUE: Multidetector volumetric imaging was performed of the abdomen and pelvis before and after the IV administration of 95 mL of Optiray 320 intravenous contrast. Sagittal and coronal reformatted images were obtained on the technologist's workstation. FINDINGS: The lung bases are clear. There is diffuse hepatic steatosis. The spleen, adrenal glands, gallbladder, and pancreas are normal. There are extrarenal pelvises bilaterally that appear stable. There is a 6 mm calculus within the midpole of the left kidney. No focal renal lesions. Large amount of intracolonic stool. The large and small bowel are normal in caliber without evidence of mechanical obstruction. No focal inflammatory changes adjacent to the large or the small bowel. The appendix is normal. There is no free air and there is no intra-abdominal free fluid. No mesenteric or retroperitoneal adenopathy. The pelvic viscera are normal. No pelvic adenopathy. No free fluid within the pelvis. There are no acute osseous abnormalities. There is nodular soft tissue density within the upper outer quadrant of the left breast that can be further assessed with mammography. IMPRESSION: - No acute intra-abdominal/intrapelvic findings. The gallbladder is normal. - There is nodular soft tissue density within the upper outer quadrant of the left breast that can be further assessed with mammography. - Large amount of intracolonic stool. No bowel obstruction. - There is a 6 mm nonobstructing calculus within the midpole of the left kidney. Extrarenal pelvises bilaterally, stable in comparison to the 2009 CT. - Hepatic steatosis.
[2016-12-23] MEDS ORDERED: ZOFRAN ODT4 M1 SL (00:03)
== END 2016-12-23 00:16 ==
LOC: ERH 19:18
PROVIDERS: Physician Assistant
DX: R51 Headache (principal)
CPT/HCPCS: 74177; 87804; 87804-59; 93005; 93010; 96361; 96374; J1885; J3101

== ENCOUNTER 2017-04-09 18:50 | Emergency (ER) | payer OTHER, MEDICARE ==
[~2017-04-09] VITALS: Ht 162.6 cm; Wt 56.7 kg
[~2017-04-09 18:50] MED LIST changes: +ZOFRAN ODT4 M1 SL
[2017-04-09 18:59] VITALS: BP 118/76
--- NOTE | 2017-04-09 19:46 | ED SKIN/ALLERGY COMPLAINT ---
History of Present Illness General Chief Complaint: Skin Rash/ Abcess Stated Complaint: ABCESS UNDER R ARM Source: family Exam Limitations: no limitations Vital Signs & Intake/Output Vital Signs & Intake/Output Vital Signs Date Time Temp Pulse Resp B/P B/P Pulse O2 O2 Flow FiO2 Mean Ox Delivery Rate 04/09 1859 98.3 87 15 118/76 100 Room Air ED Intake and Output 04/10 0000 04/09 1200 Intake Total Output Total Balance Patient 125 lb Weight Weight Reported by Patient Measurement Method Allergies Coded Allergies: ciprofloxacin (From CIPRO) (ANAPHYLAXIS 11/13/16) codeine (ANAPHYLAXIS 11/13/16) Reconcile Medications Aspirin (Ecotrin*) 81 MG TABLET.DR 1 TAB PO DAILY HEART/BLOOD (Reported) Atorvastatin Calcium 10 MG TABLET 1 TAB PO DAILY CHOLESTEROL (Reported) Biotin (Unknown Strength) CAPSULE (Unknown Dose) PO DAILY SUPPLEMENT ( Reported) Doxycycline Hyclate 100 MG TABLET 1 TAB PO BID abcess Duloxetine HCl (Cymbalta) 60 MG CAPSULE.DR 120 MG PO DAILY MENTAL HEALTH ( Reported) Fluconazole (Diflucan) 150 MG TABLET 1 TAB PO ONCE yeast infection Levothyroxine Sodium (Synthroid) 75 MCG TABLET 1 TAB PO DAILY THYROID ( Reported) Linagliptin (Tradjenta) 5 MG TABLET 1 TAB PO DAILY DM (Reported) Metformin HCl 1,000 MG TABLET 1 TAB PO BID DM (Reported) Naproxen 500 MG TABLET 1 TAB PO BID PRN PAIN TAKE WITH FOOD Ondansetron (Zofran Odt) 4 MG TAB.RAPDIS 1 TAB SL TID PRN NAUSEA Oxycodone HCl/Acetaminophen (Oxycodone-Acetaminophen 10-325) 10 MG-325 MG TABLET 1 TAB PO BID PAIN (Reported) Pantoprazole Sodium (Protonix) 40 MG TABLET.DR 1 TAB PO DAILY GI (Reported) Pregabalin (Lyrica) 150 MG CAPSULE 1 CAP PO BID PAIN (Reported) Trazodone HCl 50 MG TABLET 2 TAB PO QPM SLEEP (Reported) Triage Note: PT TO ED ABSCESS UNDER R ARM X 2 DAYS. Triage Nurses Notes Reviewed? yes Onset: Gradual Duration: day(s): Timing: recent history Severity: moderate Location: right axilla Associated Symptoms: fever HPI: 56F presents c/o abscess in right axilla x 1 week. She states that pain has gradually increased in intensity and is worse with direct pressure. She was recently diagnosed with Type 2 DM. She has felt intermittent fevers and chills, she recorded a temp of 102F two days ago. She also c/o nausea related to her pain without vomiting. She has never had an abcess before. She states that her recent blood sugars have been "good". She denies abdominal pain, injury to affected area, arthralgias, malaise. (GORDON HARE) Past History Travel History Traveled to [place] past 21 day No Medical History Any Pertinent Medical History? 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 No (GORDON HARE) Review of Systems Review of Systems Constitutional: Reports: see HPI. EENTM: Reports: no symptoms. Respiratory: Reports: no symptoms. Cardiovascular: Reports: no symptoms. GI: Reports: see HPI. Genitourinary: Reports: no symptoms. Musculoskeletal: Reports: no symptoms. Skin: Reports: see HPI. Neurological/Psychological: Reports: no symptoms. Hematologic/Endocrine: Reports: no symptoms. Immunologic/Allergic: Reports: no symptoms. All Other Systems: Reviewed and Negative (GORDON HARE) Physical Exam Physical Exam General Appearance: well developed/nourished, no apparent distress, alert, awake Head: atraumatic, normal appearance Eyes: Bilateral: normal appearance, EOMI. Ears, Nose, Throat: hearing grossly normal Neck: normal inspection, supple, full range of motion Respiratory: normal breath sounds, no respiratory distress, lungs clear Cardiovascular: regular rate/rhythm Extremities: normal inspection, normal range of motion Neurologic/Psych: no motor/sensory deficits, awake, alert, oriented x 3 Skin: rash, 1x1cm raised area of erythema, fluctuance, and tenderness in R axilla (GORDON HARE) Progress Differential Diagnosis: abscess/cellulitis, allergic reaction, contact dermatitis, urticaria Plan of Care: Orders Procedure Date/time Status TRUNK AREA CULTURE 04/09 2041 Active Microbiology 04/09 2020 TRUNK: Culture & Sensitivity - RECD 04/09 2020 TRUNK: Gram Stain - RECD Small fluctuant abscess present. I&D performed, purulent drainage expressed, cultured and sent to lab. Patient states reduced pain following procedure and she tolerated the procedure well. She was instructed to take full course of antibiotics, apply warm compresses, and follow up with her PCP in 3 days. She states that she gets frequent yeast infections with antibiotic use and was given a prophylactic course of Fluconazole. She is in agreement with plan of care. (JULIETTE ARRIAZA,GORDON) Departure Departure Disposition: HOME OR SELF CARE Condition: Stable Clinical Impression Primary Impression: Abscess Referrals: ELEN CABRAL MD (PCP/Family) Additional Instructions: Take full course of antibiotics. Take one tablet of fluconazole for yeast infection prophylaxsis and take second tab if symptoms present in 72 hours. Apply warm compress to area. Follow up with your primary care doctor in 3 days. Return with any worsening symptoms or concerns. Please go over all results of today's visit with your primary care doctor. Contact your primary care doctor to let them know you were here in the emergency room. There may be nonspecific findings which may not be related to your visit today here in the emergency room but may require further evaluation and chronic monitoring by your primary care doctor. If you had a laceration today the chance of foreign body always remains. You should follow-up with your primary care doctor for recheck in 3-5 days for a wound check. If you had an x-ray done there is a chance that a fracture could have been missed on initial read and you should follow-up with your primary care doctor for repeat x-rays if symptoms persist. If your blood pressure was elevated here in the emergency room please have rechecked by her primary care doctor within the next 48 hours by your primary care doctor. If you were prescribed a narcotic here in the emergency room or any type of controlled substances you're not allowed to drive while taking this medication or operate any type of heavy machinery. Narcotics can make you feel lightheaded dizziness nausea and can cause constipation. You may need to shredder picker a stool softener. Thank you for choosing [facility] emergency room. Please return to the emergency room immediately if you have any other concerns worsening of symptoms. Departure Forms: Customer Survey General Discharge Information Prescriptions: Current Visit Scripts Doxycycline Hyclate 1 TAB PO BID #14 TAB Fluconazole (Diflucan) 1 TAB PO ONCE #2 TAB (GORDON HARE) PA/FITNESS ASSISTANT Co-Sign Statement Statement: ED Attending supervision documentation- [] I saw and evaluated the patient. I have also reviewed all the pertinent lab results and diagnostic results. I agree with the findings and the plan of care as documented in the PA's/FITNESS ASSISTANT's documentation. [x] I have reviewed the ED Record and agree with the PA's/FITNESS ASSISTANT's documentation. [] Additions or exceptions (if any) to the PAs/FITNESS ASSISTANT's note and plan are summarized below: [] (FRANC INFANTE,STU Christy) Procedures Incision and Drainage Site: right axilla Blade Size: 11 I & D Procedure: Yes: betadine prep. No: sterile drapes applied, sterile dressing applied, wick placed. Progress: Purulent fluid expressed, patient tolerated procedure well. (GORDON HARE)
[2017-04-09] MEDS ORDERED: DOXYCYCLINE HY100 M4 PO (20:40)
[2017-04-09] MEDS ORDERED: DIFLUCAN150 M1 PO (20:40)
== END 2017-04-09 21:15 ==
LOC: ERH 18:50
DX: L02.411 Cutaneous abscess of right axilla (principal)
CPT/HCPCS: 87184; 87070; 87147

== ENCOUNTER 2017-11-20 12:13 | Emergency (ER) | payer OTHER, MEDICARE ==
[~2017-11-20] VITALS: Ht 157.5 cm; Wt 62.6 kg
[~2017-11-20 12:13] MED LIST changes: +DIFLUCAN150 M1 PO; +DOXYCYCLINE HY100 M4 PO
[2017-11-20 12:18] VITALS: BP 152/90
--- NOTE | 2017-11-20 12:42 | ED SKIN/ALLERGY COMPLAINT ---
History of Present Illness General Chief Complaint: Skin Rash/ Abcess Stated Complaint: ABCESS TO EYEBROW Source: patient Exam Limitations: no limitations Vital Signs & Intake/Output Vital Signs & Intake/Output Vital Signs Date Time Temp Pulse Resp B/P B/P Pulse O2 O2 Flow FiO2 Mean Ox Delivery Rate 11/20 1218 98.2 91 18 152/90 99 Room Air Allergies Coded Allergies: ciprofloxacin (From CIPRO) (ANAPHYLAXIS 11/13/16) codeine (ANAPHYLAXIS 11/13/16) Reconcile Medications Aspirin (Ecotrin*) 81 MG TABLET.DR 1 TAB PO DAILY HEART/BLOOD (Reported) Atorvastatin Calcium 10 MG TABLET 1 TAB PO DAILY CHOLESTEROL (Reported) Biotin (Unknown Strength) CAPSULE (Unknown Dose) PO DAILY SUPPLEMENT ( Reported) Cephalexin 250 MG/5 ML SUSP.RECON 10 ML PO TID abscess for 7 days Doxycycline Hyclate 100 MG TABLET 1 TAB PO BID abcess Duloxetine HCl (Cymbalta) 60 MG CAPSULE.DR 120 MG PO DAILY MENTAL HEALTH ( Reported) Fluconazole (Diflucan) 150 MG TABLET 1 TAB PO ONCE yeast infection Levothyroxine Sodium (Synthroid) 75 MCG TABLET 1 TAB PO DAILY THYROID ( Reported) Linagliptin (Tradjenta) 5 MG TABLET 1 TAB PO DAILY DM (Reported) Metformin HCl 1,000 MG TABLET 1 TAB PO BID DM (Reported) Naproxen 500 MG TABLET 1 TAB PO BID PRN PAIN TAKE WITH FOOD Ondansetron (Zofran Odt) 4 MG TAB.RAPDIS 1 TAB SL TID PRN NAUSEA Oxycodone HCl/Acetaminophen (Oxycodone-Acetaminophen 10-325) 10 MG-325 MG TABLET 1 TAB PO BID PAIN (Reported) Pantoprazole Sodium (Protonix) 40 MG TABLET.DR 1 TAB PO DAILY GI (Reported) Pregabalin (Lyrica) 150 MG CAPSULE 1 CAP PO BID PAIN (Reported) Sulfamethoxazole/Trimethoprim (Bactrim Ds Tablet) 800 MG-160 MG TABLET 1 TAB PO BID abscess Trazodone HCl 50 MG TABLET 2 TAB PO QPM SLEEP (Reported) Triage Note: PT TO ED FOR ABSCESS TO L EYE BROW X 1 WEEK. Triage Nurses Notes Reviewed? yes Onset: Gradual Duration: day(s): Timing: recent history Severity: moderate Location: left eyebrow HPI: 57-year-old female presents emergency department complaining of abscess to left eyebrow 1 week. Patient states she has history of previous abscess to other locations on her body. Patient has tried warm compress however abscess has continued to grow. Patient complains of significant pain and abscess site as well as associated headache. She denies visual changes, fevers, chills, abdominal pain, nausea, vomiting. (Malinda Ocasio) Past History Travel History Traveled to [place] past 21 day No Medical History Any Pertinent Medical History? 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 No (Malinda Ocasio) Review of Systems Review of Systems Constitutional: Reports: no symptoms. EENTM: Reports: no symptoms. Respiratory: Reports: no symptoms. Cardiovascular: Reports: no symptoms. GI: Reports: no symptoms. Genitourinary: Reports: no symptoms. Musculoskeletal: Reports: no symptoms. Skin: Reports: see HPI. Neurological/Psychological: Reports: see HPI. Hematologic/Endocrine: Reports: no symptoms. Immunologic/Allergic: Reports: no symptoms. All Other Systems: Reviewed and Negative (Malinda Ocasio) Physical Exam Physical Exam General Appearance: well developed/nourished, no apparent distress, alert, awake Head: atraumatic, 1x1.5cm area of erythema, fluctuance, tenderness to left eyebrow Eyes: Bilateral: normal appearance, PERRL, EOMI. Ears, Nose, Throat: hearing grossly normal Neck: normal inspection, supple, full range of motion Respiratory: no respiratory distress Back: normal inspection, normal range of motion Extremities: normal inspection, normal range of motion Neurologic/Psych: awake, alert, oriented x 3 Skin: see erythema/fluctuance to left eyebrow as described above Skin Problem Location: face Skin Problem Character: abcess (Malinda Ocasio) Progress Differential Diagnosis: abscess/cellulitis, angioedema, contact dermatitis Plan of Care: Needle aspiration was attempted however no purulent fluid drained, only blood was aspirated. Patient was started on Bactrim antibiotics, old cultures reviewed which were MRSA sensitive to Bactrim. She was given referral to plastics given the location on her face for further evaluation and possible drainage. Patient was instructed to continue warm compresses at least twice daily. She will return to emergency department with worsening symptoms or other concerns. The patient agrees with the plan of care. The patient was discussed with Dr. Guzman who agrees with the plan of care. (Malinda Ocasio) Departure Departure Disposition: HOME OR SELF CARE Condition: Stable Clinical Impression Primary Impression: Abscess Referrals: Arron INFANTE,Karo (PCP/Family) Additional Instructions: Beginning antibiotics as prescribed. Follow up with plastics regarding this abscess. Continue warm compresses, keep area clean and dry. If you cannot follow up with plastics on Wednesday or Wednesday please return to the emergency department for reevaluation. Please note that there might be incidental findings in your evaluation that are unrelated to the current emergency department visit. Please notify your primary care doctor about this emergency department visit in order to obtain and review all of the testing performed so that these incidental findings can be monitored as needed. If you had an x-ray performed, please understand that some fractures may not be seen on the initial set of x-rays. If your symptoms persist you might need a repeat set of x-rays to check for such a fracture. If you had a laceration evaluated, please understand that foreign bodies such as glass or wood may not be visible to the naked eye or on plain x-rays. If the wound becomes red, swollen, increasingly more painful or if there is any drainage from the wound, please have it reevaluated by a physician for the possibility of a retained foreign body. If you're unable to follow up as outlined in the discharge instructions please return to the emergency department. Thank you for choosing the [facility] Emergency Department for your care. It was a pleasure to serve you today. Departure Forms: Customer Survey General Discharge Information Prescriptions: Current Visit Scripts Cephalexin 10 ML PO TID #220 ML for 7 days Sulfamethoxazole/Trimethoprim (Bactrim Ds Tablet) 1 TAB PO BID #14 TAB (Malinda Ocasio) PA/POSTAL INSPECTOR Co-Sign Statement Statement: ED Attending supervision documentation- I saw and evaluated the patient. I have also reviewed all the pertinent lab results and diagnostic results. I agree with the findings and the plan of care as documented in the PA's/POSTAL INSPECTOR's documentation. x I have reviewed the ED Record and agree with the PA's/POSTAL INSPECTOR's documentation. [] Additions or exceptions (if any) to the PAs/POSTAL INSPECTOR's note and plan are summarized below: [] (Megan INFANTE,Ladarius)
[2017-11-20] MEDS ORDERED: CEPHALEXIN250 MG/51 PO (13:25)
[2017-11-20] MEDS ORDERED: BACTRIM DS TAB1 EACH PO (13:28)
== END 2017-11-20 13:35 ==
LOC: ERH 12:13
DX: L02.01 Cutaneous abscess of face (principal)